=== PATIENT | male | born 1935 | race Caucasian/White ===

== ENCOUNTER 2017-11-19 18:02 | Emergency (ER) | payer MEDICARE ==
[~2017-11-19 18:02] MED LIST: Iopamidol 370 76% 100 ML VIAL ONE; Sodium Chloride 0.9% 1,000 ML BAG ONE; Sodium Chloride 0.9% 100 ML BAG ONE
[2017-11-19] MEDS ORDERED: Lidocaine 1% 20 ML MDV ONE (18:25)
[2017-11-19 19:40] LABS: INR-International Normal Ratio 1.4; Prothrombin Time 17.6 SEC (12.0-14.7)
[2017-11-19 19:41] LABS: PTT 32.4 SEC (22.9-36.1)
[2017-11-19 19:50] LABS: Band 20 % (5-11); Hemoglobin 14.9 g/dL (14.0-18.0); Lymphocytes 4 % (21-51); MDiff Complete? YES; Mean Corpuscular Hemoglobin 30.3 pg (27.0-31.0); Mean Corpuscular Volume 89.2 fL (78.0-98.0); Mean Platelet Volume 6.7 fL (7.4-10.4); Monocytes 10 % (0-10); Myelocyte 2 % (0-0); Neutrophil 64 % (42-75); PLT Morphology Comment Appears Adequate; Platelet Count 206 thou/uL (130-400); White Blood Cell (WBC) Count 24.4 thou/uL (4.8-10.8)
[2017-11-19 19:51] LABS: ALT (SGPT) 32 U/L (8-55); AST (SGOT) 22 U/L (5-34); Albumin 3.4 g/dL (3.4-4.8); Alkaline Phosphatase 83 U/L (40-150); Anion Gap 19 mmol/L (10-20); BUN (Urea Nitrogen) 58 mg/dL (8.4-25.7); Bilirubin, Total 1.1 mg/dL (0.2-1.2); CK (CPK) 183 U/L (30-200); Calc. Creatinine Clearance 0 mL/min (70-130); Calcium 9.4 mg/dL (7.8-10.44); Carbon Dioxide 22 mmol/L (23-31); Chloride 102 mmol/L (98-107); Estimated GFR-MDRD 46; Globulin 3.7 g/dL (2.4-3.5); Glucose 194 mg/dL (83-110); Potassium 4.7 mmol/L (3.5-5.1); Protein, Total 7.1 g/dL (5.8-8.1); Sodium 138 mmol/L (136-145)
[2017-11-19 19:53] LABS: CKMB 2.3 ng/mL (0-6.6); Troponin I 0.028 ng/mL (< 0.028)
--- NOTE | 2017-11-19 20:48 | CT ---
CT OF THE BRAIN WITHOUT CONTRAST: 11/19/17 INDICATION: History of fall x2 with head pain. COMPARISON: None. FINDINGS: There is mild generalized cerebral and cerebellar atrophy. No definite acute infarct, hemorrhage, or hydrocephalus is present. Skull and extracranial soft tissues appear within normal limits. [place] been replaced. IMPRESSION: No acute intracranial abnormality. POS: [facility]
--- NOTE | 2017-11-19 21:07 | CT ---
CT CERVICAL SPINE WITHOUT CONTRAST: 11/19/17 INDICATION: History of fall with neck injury. COMPARISON: None. FINDINGS: There is multilevel spondylosis of the cervical spine. There is slight anterior translation of C3 on C4 and C4 on C5 which is likely degenerative. There is some reticulonodularity involving the right millicent ng apex with scattered paraseptal emphysema. There is postsurgical change of removal of portions of t he right mandible with a soft tissue flap overlying the right submandibular. There is a submental enl arged lymph node measuring 6 mm which is nonspecific. IMPRESSION: 1. No acute fracture or subluxation demonstrated. 2. Extensive postsurgical change involving the right aspect of the mandible. Mildly prominent negro bmental lymph node. Recommend followup with patient's ears, nose and throat specialist. 3. Tree-in-bud type nodularity involving the right lung apex suspicious for either aspiration or possibly a bronchopneumonia. Recommend correlation with the clinical exam. POS: [facility]
[2017-11-19] MEDS ORDERED: cefTRIAXone\\ROCEPHIN 1 GM VIAL ONE (21:15)
--- NOTE | 2017-11-19 21:32 | CT ---
CT OF THE CHEST WITH IV CONTRAST CT OF THE ABDOMEN AND PELVIS WITH IV CONTRAST 11/19/17 INDICATION: History of fall and tonsillar cancer. Patient is complaining of right sided pain. FINDINGS: There is debris within the right lower and right middle lobe bronchi with air space consolidation rig ht middle lobe and right lower lobe with some aspirated barium seen within bronchi of the right lower lobe and right middle lobe. There is tree-in-bud nodularity within the right upper lobe. There is sc attered emphysema. There is mildly prominent subcarinal lymph node. There is mildly prominent right p aratracheal lymph node. There is a moderate sized complicated right pleural effusion. There are bilateral renal cysts. There are multiple left sided peripelvic cysts. No focal hepatic lesion is evident. There are calcified granuloma within the spleen. There is a percu taneous gastrostomy tube in place. Adrenal glands appear within normal limits. There are moderate melissa cifications involving the abdominal and pelvic vasculature. There are calcifications of the vas deferens. There is some enteric contrast remaining within the colon. There is diffuse osteopenia. There is scattered degenerative and osteoarthritic change. No displaced rib fracture is evident. No acute fracture or subluxation is seen involving the thoracol umbar spine. There is mild Schmorl's node involving the superior end plate of T7. There is mild wedge compression abnormality superior aspect of T7. This is of undetermined chronicity. IMPRESSION: 1. Findings of aspiration pneumonia involving the right middle lobe and right lower lobe with so me barium aspirated within the right middle lobe and right lower lobe. There is a loculated moderate right pleural effusion. There is tree-in-bud nodularity in the right upper lobe also likely related to aspiration. 2. Scattered emphysema. 3. Mildly enlarged mediastinal lymph nodes. 4. No definite acute traumatic injury involving the abdomen or pelvis. 5. PEG catheter. 6. Bilateral renal cysts. 7. Age indeterminate mild superior end plate compression fracture of T7. POS: [facility]
[2017-11-19] MEDS ORDERED: metroNIDAZOLE 500 MG/100 ML BAG ONE (21:35)
[2017-11-19 21:36] LABS: Bilirubin Negative (Negative); Blood, Urine Moderate (Negative); Clarity Clear (Clear); Glucose, Urine (Dipstick) Negative (Negative); Leukocyte Negative (Negative); Nitrite Negative (Negative); Protein, Urine (Dipstick) 30 mg/dL (Neg-Trace)
[2017-11-19 22:01] LABS: Specific Gravity, Urine 1.007 (1.002-1.036)
[2017-11-19 22:02] LABS: Bacteria/HPF Rare-Few HPF (None Seen); WBC/HPF 0-3 HPF (0-3)
[2017-11-19] MEDS ORDERED: Fentanyl 100 MCG/2 ML VIAL ONE (22:46)
== END 2017-11-19 23:04 | disposition short-term general hospital (02) ==
LOC: MADERS 18:02
DX: S30.1XXA Contusion of abdominal wall, initial encounter (principal); A41.9 Sepsis, unspecified organism; J16.8 Pneumonia due to other specified infectious organisms; W01.0XXA Fall on same level from slipping, tripping and stumbling without subsequent striking against object, initial encounter
CPT/HCPCS: 36415; 70450; 71260; 72125; 74177; 80053; 81003; 81015; 82550; 82553; 83605; 83880; 84484; 85025; 85610; 85730; 87040; 87086; 93005; 96361; 96365; 96375; J0696; J2001; J3010; J7050